=== PATIENT | male | born 1995 | race Caucasian/White ===

== ENCOUNTER → 2019-11-28 | Outpatient (CLI) | payer SELFPAY ==
[2019-11-28 11:25] VITALS: BP 108/66
--- NOTE | 2019-11-28 11:25 | ER [facility] ASSESSMENT REPORT ---
Intake - In the Last 14 days Have you traveled outside [place]?: No Have you been in close contact with someone CONFIRMED: Yes Worked in Healthcare?: No - Symptoms Subjective Fever([place] feverish): No Chills: No Muscule Aches: No Runny Nose: No Sore Throat: Yes Cough (New or worsening chronic cough): Yes Shortness of breath: No Nausea or Vomiting: No Headache: No Abdominal Pain: No Diarrhea(3 or more loose stools in last 24 hours): No - Do you have any of the following Chronic lung disease: Asthma or emphysema or COPD: No Cystic Fibrosis: No Diabetes: No High Blood Pressure: No Cardiovascular Disease: No Chronic Kidney Disease: No Chronic Liver Disease: No Chronic blood disorder like Sickle Cell Disease: No Weak immune system due to disease or medication: No Neurologic condition that limits movement: No Developmental delay - Moderate to Severe: No Recent (within past 2 weeks) or current : No Morbid Obesity (>100 pounds over ideal weight): No - Objective Temperature: 97.9 F Pulse Rate: 65 Respiratory Rate: 18 Blood Pressure: 108/66 O2 Sat by Pulse Oximetry: 95 Objective: Given above, testing performed: If Testing Performed: Test Specimen Type Sent to General - General Information source: Patient Notes: Patient presents to the [facility] for screening for the coronavirus. Patient had a friend who recently tested positive and he had been around that person. Patient does complain of sore throat and cough. Patient is a smoker. Past Medical History - General Information source: Patient - Social History Smoking Status: Current Every Day Smoker - Medical History Medical History: Negative Surgical Hx: Negative Physical Exam - Notes Notes: The patient was evaluated during the global Covid 19 pandemic, and that diagnosis was suspected/considered upon their initial presentation. Their evaluation, treatment and testing was consistent with current guidelines for patients who present with complaints or symptoms that may be related to Covid 19. Full physical exam could not be performed due to covid 19 isolation protocols. Constitutional: Nontoxic appearance, no acute distress Eyes: Nonicteric, extraocular movements intact, sclera clear ENT: Posterior pharynx clear without exudates, no tonsillar hypertrophy Cardiovascular: Rate and rhythm regular, no JVD Respiratory: Breath sounds clear bilaterally, nonlabored breathing, no use of accessory muscles, no tachypnea Gastrointestinal: Abdomen not distended Muculoskeletal: Moves all extremities well, normal gait Skin: Normal color Neuro: Awake alert oriented, normal speech Psych: Normal mood and affect Diagnostic Results Laboratory Results: Patient presents with upper respiratory symptoms worrisome for possible Covid 19. Patient does not have emergency worrying symptoms such as difficulty breathing, shortness of breath, chest pain, pressure, confusion or cyanosis. Patient appears suitable for discharge as they are not of an advanced age, do not have any chronic medical conditions such as diabetes, CAD, immune deficiency, chronic lung disease or chronic kidney disease. Patient's vital signs are stable and patient is nontoxic in appearance. Good return precautions have been discussed with patient, patient verbalized understanding and is agreeable with discharge plan of care at this time. Patient Education/Counseling Counseling/Education: Patient was provided with discharge information including: As a person under investigation for Covid 19, the [place] department of Health and Human Services, division of public health advises you to adhere to the following guidance until your test results are reported to you. If your test result is positive, you will receive additional information from your provider and your local health department at that time. Remain at home until you are cleared by the health provider or public health authorities. Keep a log of visitors to your home, notify any visitors to your home of your isolation status. If you plan to move to a new address or leave the critical access hospital, notify the local health department in your County. Call your doctor or seek care if you have an urgent medical need. Before seeking medical care, call ahead to get instructions from the provider before arriving at the medical office clinic or hospital. Notify them that you are being tested for the virus that causes Covid 19 so that arrangements can be made, as necessary, to prevent transmission to others in the healthcare setting. Next, notify the local health department in your county. If a medical emergency arises and you need to call 911, inform the first responders that you are being tested for the virus that causes Covid 19. Next, notify the local health department in your county. [facility] Discharge - Discharge Clinical Impression: Encounter for screening laboratory testing for COVID-19 virus Condition: Stable Disposition: Home; Selfcare
== END ==
LOC: RDC 10:29
PROVIDERS: ATTEND Nurse Practitioner Family
DX: Z20.828 Contact with and (suspected) exposure to other viral communicable diseases (principal); R05 Cough; J02.9 Acute pharyngitis, unspecified; F17.200 Nicotine dependence, unspecified, uncomplicated
CPT/HCPCS: 87635; C9803; 99201

== ENCOUNTER 2020-05-31 10:13 | Emergency (ER) | payer SELFPAY ==
--- NOTE | 2020-05-31 10:54 | ER Document Report ---
ED Medical Screen (RME) - General Stated Complaint: GROIN PROBLEM Time Seen by Provider: 05/31/20 10:48 Primary Care Provider: COSME FRAGOSO [Primary Care Provider] - Follow up as needed - [facility] Notes: Patient is a 24-year-old male with no medical problems who presents with left testicular pain that began 1 week ago. Patient is concerned that it is twisted as he states it is lifted and sensitive to the touch. He denies any penile pain or penile discharge. He denies fever, vomiting, and abdominal pain. - Related Data Allergies/Adverse Reactions: No Known Allergies Allergy (Verified 05/31/20 10:48) Physical Exam - Vital signs Vitals: Temp Pulse Resp BP Pulse Ox 98.2 F 88 16 127/67 H 99 05/31/20 10:34 05/31/20 10:34 05/31/20 10:34 05/31/20 10:34 05/31/20 10:34 Interpretation: Normal - General General appearance: Appears well In distress: None - Respiratory Respiratory status: No respiratory distress - Genitourinary Notes: Exam unable to be performed in triage, will be performed once the patient is in a room by another provider. Course - Re-evaluation Re-evalutation: I have greeted and performed a rapid initial assessment of this patient. A comprehensive ED assessment and evaluation of the patient, analysis of test results and completion of medical decision making process will be conducted by an additional ED providers. - Vital Signs Vital signs: Temp Pulse Resp BP Pulse Ox 98.2 F 88 16 127/67 H 99 05/31/20 10:34 05/31/20 10:34 05/31/20 10:34 05/31/20 10:34 05/31/20 10:34 Doctor's Discharge - Discharge Referrals: COSME FRAGOSO [Primary Care Provider] - Follow up as needed
--- NOTE | 2020-05-31 11:04 | ER Document Report ---
ED GI/ - General Chief Complaint: Testicular Pain Stated Complaint: GROIN PROBLEM Time Seen by Provider: 05/31/20 10:48 Primary Care Provider: COSME FRAGOSO [NO LOCAL MD] - Follow up as needed Notes: CHIEF COMPLAINT: Left testicular pain for a week HPI: 24-year-old male presenting with left testicular pain for 1 week, describes it as an aching sensation in the left testicle that is been fairly constant. No dysuria. No discharge. No rash. Denies abdominal or pelvic pain. ROS: See HPI - all other systems were reviewed and are otherwise negative Constitutional: no fever Eyes: no drainage, no blurred vision ENT: no runny nose, no sore throat Cardiovascular: no chest pain Resp: no SOB, no cough GI: no vomiting, no diarrhea, no abdominal pain : no dysuria, positive testicular pain Integumentary: no rash Allergy: no hives Musculoskeletal: no extremity pain or swelling Neurological: no numbness/tingling, no weakness MEDICATIONS: I agree with the patient medications as charted by the RN. ALLERGIES: I agree with the allergies as charted by the RN. PAST MEDICAL HISTORY/PAST SURGICAL HISTORY: Reviewed and agree as charted by RN. SOCIAL HISTORY: Reviewed and agree as charted by RN. FAMILY HISTORY: No significant familial comorbid conditions directly related to patient complaint EXAM: Reviewed vital signs as charted by RN. CONSTITUTIONAL: Alert and oriented and responds appropriately to questions. Well-appearing; well-nourished HEAD: Normocephalic; atraumatic EYES: Conjunctivae clear, sclerae non-icteric ENT: normal nose; no rhinorrhea; moist mucous membranes NECK: Supple without meningismus CARD: symmetric distal pulses RESP: Normal chest excursion without splinting or tachypnea ABD/GI: Normal bowel sounds; non-distended; soft, non-tender, no rebound, no guarding; no palpable organomegaly or masses. : Circumcised male. Bilateral testicles are descended and not specifically tender. No palpable masses. No inguinal or scrotal hernias on palpation or visualization. No visible urethral discharge. No visible rash. No lymphadenopathy in the groin BACK: The back appears normal and is non-tender to palpation, there is no CVA tenderness EXT: Normal ROM in all joints; non-tender to palpation; no cyanosis, no effusions, no edema SKIN: Normal color for age and race; warm; dry; good turgor; no acute lesions noted NEURO: Moves all extremities equally; Motor and sensory function intact PSYCH: The patient's mood and manner are appropriate. Grooming and personal hygiene are appropriate. MDM: 24-year-old male left testicular pain will obtain urinalysis, ultrasound. Have low suspicion for torsion - Related Data Allergies/Adverse Reactions: No Known Allergies Allergy (Verified 05/31/20 10:48) Past Medical History - Social History Smoking Status: Current Every Day Smoker Chew tobacco use (# tins/day): No Frequency of alcohol use: Occasional Drug Abuse: Marijuana Family History: Reviewed & Not Pertinent Physical Exam - Vital signs Vitals: Temp Pulse Resp BP Pulse Ox 98.2 F 88 16 127/67 H 99 05/31/20 10:34 05/31/20 10:34 05/31/20 10:34 05/31/20 10:34 05/31/20 10:34 Course - Re-evaluation Re-evalutation: 05/31/20 12:57 Ultrasound does not show any acute findings. Will discharge home to follow-up with urology - Vital Signs Vital signs: Temp Pulse Resp BP Pulse Ox 98.2 F 88 16 127/67 H 99 05/31/20 10:34 05/31/20 10:34 05/31/20 10:34 05/31/20 10:34 05/31/20 10:34 - Laboratory Results Laboratory Results Interpreted: 05/31/20 10:54 Chlamydia DNA (PCR) DETECTED H Critical Laboratory Results Reviewed: No Critical Results - Radiology Results Critical Radiology Results Reviewed: No Critical Results Discharge - Discharge Clinical Impression: Testicular pain, left Condition: Stable Disposition: HOME, SELF-CARE Instructions: Testicular Pain ([facility]) Additional Instructions: Your ultrasound imaging did not show any acute findings in the testicle. Follow-up with urology for further evaluation and treatment call for appointment. Motrin or Tylenol for pain. Referrals: CORTNEY IGNACIO MD [NO LOCAL MD] - Follow up as needed
[2020-05-31 11:20] LABS: APPEARANCE,URINE CLEAR; BILIRUBIN,URINE NEGATIVE (NEGATIVE); COLOR,URINE YELLOW; GLUCOSE, URINE NEGATIVE (NEGATIVE); KETONES,URINE NEGATIVE (NEGATIVE); LEUKOCYTE ESTERASE,URINE NEGATIVE (NEGATIVE); NITRITE,URINE NEGATIVE (NEGATIVE); PROTEIN,URINE NEGATIVE (NEGATIVE); URINE SPECIFIC GRAVITY 1.013; UROBILINOGEN,URINE NEGATIVE mg/dL (<2.0)
--- NOTE | 2020-05-31 12:49 | RADIOLOGY REPORT (SQ) ---
EXAM DESCRIPTION: U/S SCROTUM W/DOPPLER IMAGES COMPLETED DATE/TIME: 05/31/2020 12:09 pm REASON FOR STUDY: left testicular pain COMPARISON: None. TECHNIQUE: Static and realtime rosenthal scale imaging of the scrotum and testes. Selected color Doppler and spectral images recorded to document blood flow. LIMITATIONS: None. FINDINGS: RIGHT: TESTICLE: The right testicle measures 4.2 x 2.5 x 2.5 cm. The echotexture of the testicular parenchy ma is normal and on Doppler there is intact arterial inflow and venous outflow within it. There is n o testicular mass. EPIDIDYMIS: The epididymis measures 9 x 10 x 10 mm. There is no hyperemia on Doppler. HYDROCELE OR VARICOCELE: No. HERNIA OR EXTRA-TESTICULAR MASS: No. OTHER: No other finding. LEFT: TESTICLE: The left testicle measures 4 x 3 x 2 cm. The echotexture of the testicular parenchyma is n ormal and on Doppler there is intact arterial inflow and venous outflow within it. There is no testi cular mass. EPIDIDYMIS: The epididymis measures 8 x 7 x 14 mm. There is no hyperemia on Doppler. HYDROCELE OR VARICOCELE: No. HERNIA OR EXTRA-TESTICULAR MASS: No. OTHER: No other finding. IMPRESSION: 1. No evidence of testicular torsion. 2. No evidence of epididymitis. 3. No hydrocele or varicocele. TECHNICAL DOCUMENTATION: JOB ID: [id number] 2010 [employer]- All Rights Reserved Reading location - IP/workstation name: [email or web address]
[2020-05-31 12:51] LABS: CHLAM PCR DETECTED (NOT DETECT)
[2020-05-31 13:20] VITALS: BP 111/62
== END 2020-05-31 13:10 | disposition home or self-care (01) ==
LOC: ER 10:13
DX: N50.812 Left testicular pain (principal); F17.200 Nicotine dependence, unspecified, uncomplicated
CPT/HCPCS: 76870; 81001; 87491; 87591; 93976; 99284